=== PATIENT | male | born 1965 | race Caucasian/White ===

== ENCOUNTER 2016-11-15 11:42 | Emergency (ER) | payer OTHER ==
--- NOTE | 2016-11-15 11:51 | PDOC ---
History of Present Illness - General Chief Complaint: Allergic Reaction Stated Complaint: ALLERGIC REACTION TO RIGHT EYE Time Seen by Provider: 11/15/16 11:51 History Source: Patient Exam Limitations: No Limitations - History of Present Illness Initial Comments: 51 yo M history environmental allergies presents with R eye swelling. He states that he was at the gym this morning, felt his right eye getting itchy, rubbed it multiple times. Since then he has taken benadryl, as he suspected it was an allergy. The itching has resolved, but he is still having swelling in that eye. Denies pain or vision changes. Past History - Past Medical History Allergies/Adverse Reactions: Allergies Allergy/AdvReac Type Severity Reaction Status Date / Time acyclovir Allergy Intermediate Swelling Verified 11/15/16 11:46 Home Medications: Ambulatory Orders Amlodipine Besylate 10 mg PO DAILY 11/15/16 Losartan Potassium 25 mg PO DAILY 11/15/16 Review of Systems - Review of Systems Able to Perform ROS?: Yes Comments:: GENERAL/CONSTITUTIONAL: No fever or chills. No weakness. HEAD, EYES, EARS, NOSE AND THROAT: No change in vision. No ear pain or discharge. No sore throat. +R eye swelling. SKIN: No rash NEUROLOGIC: No headache, vertigo, loss of consciousness, or change in strength/ sensation. ALLERGIC/IMMUNOLOGIC: No hives or skin allergy. *Physical Exam - Physical Exam Comments: GENERAL: Awake, alert, and fully oriented, in no acute distress HEAD: No signs of trauma EYES: R eye with chemosis inferiorly, mild conjunctival injection. PERRLA, EOMI , sclera anicteric. ENT: Auricles normal inspection, hearing grossly normal, nares patent, oropharynx clear without exudates. Moist mucosa SKIN: Warm, Dry, normal turgor, no rashes or lesions noted. *DC/Admit/Observation/Transfer Diagnosis at time of Disposition: Allergic eye reaction - Discharge Dispostion Disposition: HOME Condition at time of disposition: Stable Admit: No - Patient Instructions Printed Discharge Instructions: DI for Eye Allergic Reaction
[2016-11-15 11:57] VITALS: BP 147/93; PULSE 86; TEMP 98.2; BMI 25.0
[2016-11-15] MEDS ORDERED: DEXAMETHASONE SOD PHOSPHATE 10 MG/1 ML VIAL IM ONE (11:57)
[2016-11-15] MEDS ORDERED: DEXAMETHASONE SOD PHOSPHATE 10 MG/1 ML VIAL ONE (12:01)
== END 2016-11-15 12:21 | disposition home or self-care (01) ==
LOC: FER 11:42
PROC: 3E023GC Introduction of Other Therapeutic Substance into Muscle, Percutaneous Approach (ICD-10-PCS; principal; 2016-11-15)
DX: T78.49XA Other allergy, initial encounter (principal)
CPT/HCPCS: 99281-25